=== PATIENT | male | born 1995 | race Caucasian/White ===

== ENCOUNTER → 2020-02-22 | Emergency (ER) | payer MEDICARE, MEDICAID ==
[~2020-02-22] VITALS: Ht 170.1 cm; Wt 131.5 kg
[~2020-02-22] MED LIST: HYDROcodone/APAP 5 MG/325 MG (LORTAB) TAB PO ONE
--- NOTE | 2020-02-22 13:38 | ED Lower Extremity ---
General Stated Complaint: L FOOT PAIN Source: patient, family Exam Limitations: no limitations History of Present Illness Date Seen by Provider: Feb 22, 2020 Time Seen by Provider: 13:38 Initial Comments this developmentally delayed gentleman presents to ER by his mother with left foot pain for about 2 days. No known injury, believes he may have injured it during his sleep. Onset: yesterday Severity: moderate Pain/Injury Location: left foot Method of Injury: unknown Modifying Factors: Worse With Movement Allergies and Home Medications Allergies Coded Allergies: No Known Drug Allergies (Unverified , 02/22/20) Patient Home Medication List Home Medication List Reviewed: Yes Review of Systems Constitutional: see HPI EENTM: see HPI Respiratory: no symptoms reported Cardiovascular: no symptoms reported Genitourinary: no symptoms reported Musculoskeletal: see HPI Skin: no symptoms reported Psychiatric/Neurological: No Symptoms Reported Past Gnxeplq-Vyzrsb-Zzoiux Hx Patient Social History Recent Foreign Travel: No Contact w/Someone Who Travel: No Physical Exam Vital Signs Vital Signs - First Documented 02/22/20 13:28 Temp 36.9 Pulse 115 Resp 18 B/P (MAP) 156/82 (106) Pulse Ox 96 O2 Delivery Room Air Capillary Refill : Height, Weight, BMI Height: '" Weight: lbs. oz. kg; BMI Method: General Appearance: WD/WN, no apparent distress, obese HEENT: normal ENT inspection Respiratory: no respiratory distress, no accessory muscle use Hips: bilateral hip non-tender, bilateral hip normal inspection, bilateral hip normal range of motion Legs: bilateral leg non-tender, bilateral leg normal inspection, bilateral leg normal range of motion Knees: bilateral knee non-tender, bilateral knee normal inspection, bilateral knee normal range of motion Ankles: bilateral ankle non-tender, bilateral ankle normal inspection, bilateral ankle normal range of motion Feet: left foot pain (pain over the arch of the foot without swelling or bruising or erythema), left foot soft tissue tenderness Neurologic/Psychiatric: alert, normal mood/affect, oriented x 3 Skin: normal color, warm/dry Progress/Results/Core Measures Results/Orders My Orders Orders - WILMA FRYE APRN Foot, Left, 3 Views (02/22/20 13:37) Hydrocodone/Apap 5/325 Tablet (Lortab 5 (02/22/20 13:45) Vital Signs/I&O 02/22/20 13:28 Temp 36.9 Pulse 115 Resp 18 B/P (MAP) 156/82 (106) Pulse Ox 96 O2 Delivery Room Air Departure Impression Primary Impression: Plantar fasciitis Disposition: 01 HOME, SELF-CARE Condition: Stable Departure-Patient Inst. Decision time for Depature: 13:40 Patient Instructions: Plantar Fasciitis Exercises Add. Discharge Instructions: 1. Return to ER for any concerns 2. Follow-up with her doctor next week 3. Freeze a 2 L bottle of pop with water and then roll your foot [id number] over it. WILMA FRYE FINISHED [employer] EXAMINER Feb 22, 2020 13:38
--- NOTE | 2020-02-22 14:15 | Diagnostic Imaging Report ---
INDICATION: Left foot pain. TIME OF EXAM: 2:06 PM Three views of the left foot were obtained. Metatarsals are intact. Phalanges are intact. Midfoot and hindfoot are unremarkable. No fractures are identified. IMPRESSION: No acute bony abnormality is detected. Dictated by: Dictated on workstation # [id number]
[2020-02-22 14:35] VITALS: BP 156/82
== END | disposition home or self-care (01) ==
LOC: ER 12:56
DX: M72.2 Plantar fascial fibromatosis (principal)
CPT/HCPCS: 73630

== ENCOUNTER 2021-04-17 08:21 | Emergency (ER) | payer MEDICARE, MEDICAID ==
[~2021-04-17] VITALS: Ht 175.3 cm; Wt 160.0 kg
[2021-04-17] MEDS ORDERED: LACTATED RINGERS 1,000 ML IV SCH (10:30)
[2021-04-17 10:34] LABS: BASOPHILS # (AUTO) 0.1 10^3/uL (0.0-0.1); BASOPHILS % (AUTO) 1 % (0-10); EOSINOPHILS % (AUTO) 0 % (0-10); HEMATOCRIT 46 % (40-54); LYMPHOCYTES # (AUTO) 7.2 10^3/uL (1.0-4.0); LYMPHOCYTES % (AUTO) 58 % (12-44); MEAN CORPUSCULAR HEMOGLOBIN 34 pg (25-34); MEAN CORPUSCULAR HGB CONC 35 g/dL (32-36); MEAN CORPUSCULAR VOLUME 98 fL (80-99); MEAN PLATELET VOLUME 10.9 fL (9.0-12.2); MONOCYTES # (AUTO) 0.9 10^3/uL (0.0-1.0); MONOCYTES % (AUTO) 8 % (0-12); NEUTROPHILS # (AUTO) 4.3 10^3/uL (1.8-7.8); NEUTROPHILS % (AUTO) 34 % (42-75); PLATELET COUNT 188 10^3/uL (130-400); WHITE BLOOD COUNT 12.5 10^3/uL (4.3-11.0)
[2021-04-17 10:42] LABS: ALBUMIN 3.7 GM/DL (3.2-4.5)
[2021-04-17 10:43] LABS: CALCIUM 9.1 MG/DL (8.5-10.1)
[2021-04-17 10:45] LABS: TOTAL PROTEIN 8.3 GM/DL (6.4-8.2)
[2021-04-17 10:46] LABS: BILIRUBIN,TOTAL 1.4 MG/DL (0.1-1.0)
--- NOTE | 2021-04-17 10:46 | ED General ---
General Chief Complaint: Fever-Adult/Adol Stated Complaint: FEVER,FACIAL SWELLING,CHILLS,N/V,KUO Nursing Triage Note: mom reports fever off/on for 3 days. headache, chills, vomiting starting last night Source of Information: Patient, Family Exam Limitations: No Limitations History of Present Illness Date Seen by Provider: Apr 17, 2021 Time Seen by Provider: 09:41 Initial Comments To ER with a 3-day history of headache chills vomiting and fever. He is autistic brought to ER by mother. Timing/Duration: 2-3 Days Severity: Moderate Associated Systoms: Denies Symptoms Allergies and Home Medications Allergies Coded Allergies: No Known Drug Allergies (Unverified , 02/22/20) Patient Home Medication List Home Medication List Reviewed: Yes Review of Systems Review of Systems Constitutional: see HPI, chills, fever EENTM: see HPI Respiratory: no symptoms reported; No see HPI, No cough Cardiovascular: no symptoms reported Genitourinary: no symptoms reported Musculoskeletal: no symptoms reported Skin: no symptoms reported Psychiatric/Neurological: No Symptoms Reported Hematologic/Lymphatic: No Symptoms Reported Immunological/Allergic: no symptoms reported Past Cbaggwe-Lodshj-Ctkthx Hx Patient Social History Tobacco Use?: No Alcohol Use?: No Pt feels they are or have been: No Past Medical History Surgeries: No Respiratory: No Cardiac: No Neurological: Yes Developmental Disorder Genitourinary: No Gastrointestinal: No Musculoskeletal: No Endocrine: No HEENT: No Cancer: No Did You Recieve Any Treatments: No Psychosocial: No Integumentary: No Blood Disorders: No Physical Exam Vital Signs Vital Signs - First Documented 04/17/21 08:51 Temp 37.0 Pulse 120 Resp 24 B/P (MAP) 72/51 (58) Pulse Ox 94 O2 Delivery Room Air Capillary Refill : Less Than 3 Seconds Height, Weight, BMI Height: '" Weight: lbs. oz. kg; 52.00 BMI Method: General Appearance: No Apparent Distress, WD/WN, Obese (Alert and oriented no distress oxygen 96% room air.) Eyes: Bilateral Eye Normal Inspection, Bilateral Eye PERRL, Bilateral Eye EOMI HEENT: Pharynx Normal (Erythematous tonsils and pharynx. Strep negative mono negative. Also has several teeth that are carious and eroded without swelling or abscess), Other (Tympanic membrane obscured by cerumen bilaterally though he does report intermittent earaches.) Neck: Full Range of Motion, Normal Inspection Respiratory: No Accessory Muscle Use, No Respiratory Distress Cardiovascular: Normal Peripheral Pulses, Tachycardia Gastrointestinal: Normal Bowel Sounds, Non Tender, Soft Extremity: Normal Capillary Refill, Normal Inspection Neurologic/Psychiatric: Alert, Oriented x3 Skin: Normal Color, Warm/Dry Progress/Results/Core Measures Suspected Sepsis SIRS Temperature: Pulse: 120 Respiratory Rate: 24 Laboratory Tests 04/17/21 10:26: White Blood Count 12.5H Blood Pressure 72 /51 Mean: 108 Laboratory Tests 04/17/21 10:26: Creatinine 0.88, Platelet Count 188, Total Bilirubin 1.4H Results/Orders Lab Results Laboratory Tests Test 04/17/21 10:13 04/17/21 10:26 04/17/21 10:27 04/17/21 10:35 Range/Units Influenza Type A (RT-PCR) Not Detected Not Detecte Influenza Type B (RT-PCR) Not Detected Not Detecte SARS-CoV-2 RNA (RT-PCR) Not Detected Not Detecte White Blood Count 12.5 H 4.3-11.0 10^3/uL Red Blood Count 4.66 4.30-5.52 10^6/uL Hemoglobin 16.0 13.3-17.7 g/dL Hematocrit 46 40-54 % Mean Corpuscular Volume 98 80-99 fL Mean Corpuscular Hemoglobin 34 25-34 pg Mean Corpuscular Hemoglobin Concent 35 32-36 g/dL Red Cell Distribution Width 15.2 H 10.0-14.5 % Platelet Count 188 130-400 10^3/uL Mean Platelet Volume 10.9 9.0-12.2 fL Immature Granulocyte % (Auto) 0 % Neutrophils (%) (Auto) 34 L 42-75 % Lymphocytes (%) (Auto) 58 H 12-44 % Monocytes (%) (Auto) 8 0-12 % Eosinophils (%) (Auto) 0 0-10 % Basophils (%) (Auto) 1 0-10 % Neutrophils # (Auto) 4.3 1.8-7.8 10^3/uL Lymphocytes # (Auto) 7.2 H 1.0-4.0 10^3/uL Monocytes # (Auto) 0.9 0.0-1.0 10^3/uL Eosinophils # (Auto) 0.0 0.0-0.3 10^3/uL Basophils # (Auto) 0.1 0.0-0.1 10^3/uL Immature Granulocyte # (Auto) 0.0 0.0-0.1 10^3/uL Neutrophils % (Manual) 37 % Lymphocytes % (Manual) 15 % Monocytes % (Manual) 6 % Eosinophils % (Manual) 0 % Basophils % (Manual) 0 % Band Neutrophils 0 % Reactive Lymphocytes 42 % Blood Morphology Comment NORMAL Sodium Level 133 L 135-145 MMOL/L Potassium Level 4.0 3.6-5.0 MMOL/L Chloride Level 99 98-107 MMOL/L Carbon Dioxide Level 24 21-32 MMOL/L Anion Gap 10 5-14 MMOL/L Blood Urea Nitrogen 5 L 7-18 MG/DL Creatinine 0.88 0.60-1.30 MG/DL Estimat Glomerular Filtration Rate 105 BUN/Creatinine Ratio 6 Glucose Level 118 H 70-105 MG/DL Calcium Level 9.1 8.5-10.1 MG/DL Corrected Calcium 9.3 8.5-10.1 MG/DL Total Bilirubin 1.4 H 0.1-1.0 MG/DL Aspartate Amino Transf (AST/SGOT) 32 5-34 U/L Alanine Aminotransferase (ALT/SGPT) 21 0-55 U/L Alkaline Phosphatase 122 40-136 U/L Total Protein 8.3 H 6.4-8.2 GM/DL Albumin 3.7 3.2-4.5 GM/DL Procalcitonin 0.19 H <0.10 NG/ML Monoscreen NEGATIVE NEGATIVE Group A Streptococcus Screen NEGATIVE NEGATIVE My Orders Orders - WILMA FRYE APRN Covid 19 Inhouse Test (04/17/21 09:33) Cbc With Automated Diff (04/17/21 10:25) Comprehensive Metabolic Panel (04/17/21 10:25) Ed Iv/Invasive Line Start (04/17/21 10:25) Chest 1 View, Ap/Pa Only (04/17/21 10:25) Procalcitonin (Pct) (04/17/21 10:25) Lactated Ringers (Lr 1000 Ml Iv Solution (04/17/21 10:30) Rapid Strep A Screen (04/17/21 10:35) Monotest (04/17/21 10:35) Manual Differential (04/17/21 10:26) Influenza A And B By Pcr (04/17/21 10:13) Ua Culture If Indicated (04/17/21 11:17) Vital Signs/I&O 04/17/21 04/17/21 08:51 09:10 Temp 37.0 Pulse 120 134 Resp 24 95 B/P (MAP) 72/51 (58) 136/94 Pulse Ox 94 O2 Delivery Room Air Room Air Capillary Refill : Less Than 3 Seconds Blood Pressure Mean: 108 Departure Communication (Admissions) 1220-doing okay, we will put him on some amoxicillin for the potential ear infection/dental infection. Impression Primary Impression: Febrile illness Disposition: HOME, SELF-CARE Condition: Stable Departure-Patient Inst. Decision time for Depature: 12:15 Referrals: NO,LOCAL PHYSICIAN (PCP/Family) Primary Care Physician Patient Instructions: Fever of Unknown Origin Add. Discharge Instructions: 1. Return to ER for any concerns 2. Follow-up with your doctor next week All discharge instructions reviewed with patient and/or family. Voiced understanding. Scripts Amoxicillin (Amoxicillin) 500 Mg Capsule 1000 MG PO BID, #28 CAP 0 Refills Prov: WILMA FRYE APRN 04/17/21 WILMA FRYE APRN Apr 17, 2021 10:46
[2021-04-17 10:48] LABS: CREATININE SERUM 0.88 MG/DL (0.60-1.30)
[2021-04-17 10:59] LABS: BAND NEUTROPHILS 0 %; BASOPHILS % (MANUAL) 0 %; EOSINOPHILS % (MANUAL) 0 %; LYMPHOCYTES % (MANUAL) 15 %; MONOCYTES % (MANUAL) 6 %; NEUTROPHILS % (MANUAL) 37 %; REACTIVE LYMPHOCYTES 42 %
[2021-04-17 11:00] LABS: RBC MORPH NORMAL
--- NOTE | 2021-04-17 12:19 | Diagnostic Imaging Report ---
EXAMINATION: Chest, one view. HISTORY: Cough. COMPARISON: None available. FINDINGS: Heart size and pulmonary vasculature are normal. There are low lung volumes without consolidation, pleural effusion, or pneumothorax. There is an ill-defined area of opacity within the lateral right lower lung. The osseous structures are intact. IMPRESSION: 1. Ill-defined opacity within the right lower lung. This may be external to the patient. Evaluation with dedicated CT of the chest or lateral chest radiograph would be recommended to exclude pleural-based lesion or pneumonia. Dictated by: Dictated on workstation # [id number]
[2021-04-17] MEDS ORDERED: AMOX500C2 PO (12:21)
[2021-04-17 12:24] LABS: BILIRUBIN,URINE NEGATIVE (NEGATIVE); CLARITY,URINE CLEAR; COLOR,URINE ORANGE; GLUCOSE, URINE (UA) NEGATIVE (NEGATIVE); KETONES,URINE NEGATIVE (NEGATIVE); LEUKOCYTE ESTERASE ,URINE NEGATIVE (NEGATIVE); NITRITE,URINE NEGATIVE (NEGATIVE); PROTEIN,URINE NEGATIVE (NEGATIVE)
[2021-04-17 12:27] VITALS: BP 128/99
[2021-04-17 12:33] LABS: BACTERIA,URINE NEGATIVE /HPF
== END 2021-04-17 12:31 | disposition home or self-care (01) ==
LOC: EDUNIT# 08:21 → ER 08:22
DX: R50.9 Fever, unspecified (principal); E66.9 Obesity, unspecified; R00.0 Tachycardia, unspecified; Z68.43 Body mass index [BMI] 50.0-59.9, adult; Z20.822 Contact with and (suspected) exposure to COVID-19
CPT/HCPCS: 36415; 71045; 80053; 81000; 84145; 85007; 85027; 86308; 87430; 87636

== ENCOUNTER 2022-01-08 20:40 | Emergency (ER) | payer MEDICARE, MEDICAID ==
[~2022-01-08] VITALS: Ht 175.2 cm; Wt 160.0 kg
[~2022-01-08 20:40] MED LIST changes: +AMOX500C2 PO; -HYDROcodone/APAP 5 MG/325 MG (LORTAB) TAB PO ONE
--- NOTE | 2022-01-08 21:11 | ED Lower Extremity ---
General Chief Complaint: Lower Extremity Stated Complaint: R FOOT PAIN Source: patient, family Exam Limitations: no limitations History of Present Illness Date Seen by Provider: Jan 08, 2022 Time Seen by Provider: 21:08 Initial Comments To ER by private vehicle accompanied by mother with reports of right foot pain. He fell last week fracturing the right foot. He also injured the left chest wall. Onset: last week Severity: moderate Pain/Injury Location: left foot Method of Injury: fell Modifying Factors: Worse With Movement Allergies and Home Medications Allergies Coded Allergies: No Known Drug Allergies (Unverified , 02/22/20) Patient Home Medication List Home Medication List Reviewed: Yes (I just put in a right foot and a left) Amoxicillin (Amoxicillin) 500 Mg Capsule, 1,000 MG PO BID Prescribed by: WILMA FRYE on 04/17/21 1221 Review of Systems Constitutional: see HPI EENTM: see HPI Respiratory: no symptoms reported Cardiovascular: no symptoms reported Genitourinary: no symptoms reported Musculoskeletal: no symptoms reported Skin: no symptoms reported Psychiatric/Neurological: No Symptoms Reported Past Jvhdvhu-Jcaplu-Eobjmb Hx Patient Social History Tobacco Use?: No Use of E-Cig and/or Vaping dev: No Substance use?: No Alcohol Use?: No Pt feels they are or have been: No Past Medical History Surgeries: No Respiratory: No Cardiac: No Neurological: Yes Developmental Disorder Genitourinary: No Gastrointestinal: No Musculoskeletal: No Endocrine: No HEENT: No Cancer: No Did You Recieve Any Treatments: No Psychosocial: No Integumentary: No Blood Disorders: No Physical Exam Vital Signs Vital Signs - First Documented 01/08/22 20:45 Temp 36.6 Pulse 119 Resp 20 B/P (MAP) 143/76 (98) Pulse Ox 98 O2 Delivery Room Air Capillary Refill : Height, Weight, BMI Height: '" Weight: lbs. oz. kg; 52.00 BMI Method: General Appearance: WD/WN, no apparent distress HEENT: PERRL/EOMI, normal ENT inspection Neck: non-tender, full range of motion Respiratory: no respiratory distress, no accessory muscle use Hips: bilateral hip non-tender, bilateral hip normal inspection, bilateral hip normal range of motion Legs: bilateral leg non-tender, bilateral leg normal inspection, bilateral leg normal range of motion Knees: bilateral knee non-tender, bilateral knee normal inspection, bilateral knee normal range of motion Ankles: bilateral ankle non-tender, bilateral ankle normal inspection, bilateral ankle normal range of motion Feet: left foot pain, left foot soft tissue tenderness, left foot swelling Neurologic/Psychiatric: alert, normal mood/affect, oriented x 3 Skin: normal color, warm/dry Progress/Results/Core Measures Results/Orders My Orders Orders - WILMA FRYE APRN Foot, Right, 3 View (01/08/22 21:07) Ribs/Unilateral With Chest (01/08/22 21:07) Vital Signs/I&O 01/08/22 20:45 Temp 36.6 Pulse 119 Resp 20 B/P (MAP) 143/76 (98) Pulse Ox 98 O2 Delivery Room Air Departure Communication (Admissions) 2124 he is wearing his own postop shoe already as he has already seen orthopedics and is scheduled to follow-up with them. Impression Primary Impression: Contusion of rib on left side Qualified Codes: S20.212A - Contusion of left front wall of thorax, initial encounter Additional Impression: Foot fracture, right Qualified Codes: S92.901A - Unspecified fracture of right foot, initial encounter for closed fracture Disposition: HOME, SELF-CARE Condition: Stable Departure-Patient Inst. Decision time for Depature: 21:10 Referrals: NO,LOCAL PHYSICIAN (PCP/Family) Primary Care Physician Patient Instructions: Acute Pain, Adult WILMA FRYE APRN Jan 08, 2022 21:11
[2022-01-08] MEDS ORDERED: NAPR-1071 PO (21:31)
[2022-01-08 21:35] VITALS: BP 143/76
--- NOTE | 2022-01-08 22:00 | Diagnostic Imaging Report ---
EXAMINATION: Left ribs, 4 views. COMPARISON: None. HISTORY: 26-year-old male, left rib pain after injury. FINDINGS: There is no identified rib fracture. Heart size and mediastinal contours are grossly unremarkable. There is no identified pneumothorax or large pleural effusion. IMPRESSION: 1. No identified rib fracture. 2. No identified acute cardiopulmonary abnormality. Dictated by: Dictated on workstation # [id number]
--- NOTE | 2022-01-08 22:04 | Diagnostic Imaging Report ---
EXAMINATION: Right foot radiographs, 3 views. COMPARISON: None. HISTORY: 26-year-old male, right foot pain. FINDINGS: There is a hallux valgus deformity. There is irregular lucency at the level of the base of the fifth metatarsal likely reflecting a nondisplaced comminuted intra-articular fracture without identified offset of the articulating surface. There is no identified radiopaque foreign body. Joint spaces are well preserved. IMPRESSION: Comminuted nondisplaced intra-articular fracture of the base of the fifth metatarsal without offset of the articulating surface. Dictated by: Dictated on workstation # [id number]
== END 2022-01-08 21:35 | disposition home or self-care (01) ==
LOC: EDUNIT# 20:40 → ER 20:42
DX: S92.901A Unspecified fracture of right foot, initial encounter for closed fracture (principal); S20.20XA Contusion of thorax, unspecified, initial encounter; Z28.310 Unvaccinated for COVID-19; W19.XXXA Unspecified fall, initial encounter
CPT/HCPCS: 71101; 73630